=== PATIENT | female | born 1945 | race Two or more races ===

== ENCOUNTER 2021-07-26 12:35 | Outpatient (CLI) | payer MEDICARE, OTHER | END 2021-07-26 23:59 | disposition home or self-care (01) | LOC: WOU 12:35 | PROVIDERS: ATTEND Podiatrist Foot & Ankle Surgery | DX: I89.0 Lymphedema, not elsewhere classified (principal); I83.90 Asymptomatic varicose veins of unspecified lower extremity; M21.619 Bunion of unspecified foot; M20.40 Other hammer toe(s) (acquired), unspecified foot; I10 Essential (primary) hypertension; Z79.82 Long term (current) use of aspirin | CPT/HCPCS: G0463 ==

== ENCOUNTER 2025-08-06 11:00 | Outpatient (CLI) | payer MEDICARE, OTHER ==
[2025-08-06] MEDS ORDERED: HYDROCORTISONE 1% CREAM 28.35 GM TUBE TP ONE (11:18)
[2025-08-06] MEDS ORDERED: UREA 10% -AHA 4% CREAM 57 GM TUBE ONE (11:19)
[2025-08-06] MEDS ORDERED: CLOTRIMAZOLE 1% 15 GM TUBE TP ONE (11:19)
== END 2025-08-06 23:59 | disposition home health service (06) ==
LOC: WOU 11:00
PROVIDERS: ATTEND Podiatrist Foot & Ankle Surgery
DX: I89.0 Lymphedema, not elsewhere classified (principal); I87.2 Venous insufficiency (chronic) (peripheral); L97.222 Non-pressure chronic ulcer of left calf with fat layer exposed; L97.311 Non-pressure chronic ulcer of right ankle limited to breakdown of skin; M79.672 Pain in left foot; M79.671 Pain in right foot; I10 Essential (primary) hypertension
CPT/HCPCS: 29580; A6454